=== PATIENT | female | born 1965 | race Caucasian/White ===

== ENCOUNTER → 2017-07-01 | Outpatient (CLI) | payer OTHER ==
[~2017-07-01] MED LIST: FLOMAX0.4 MG PO; HYDROCHLOROTHIA25 MG PO; NAPROXEN500 MG PO; PERCOCET 5/31 TABLET PO; PRINIVIL20 MG PO
== END | disposition home or self-care (01) ==
LOC: RAD 15:27
DX: M19.012 Primary osteoarthritis, left shoulder (principal); M47.892 Other spondylosis, cervical region; M25.512 Pain in left shoulder; V89.2XXA Person injured in unspecified motor-vehicle accident, traffic, initial encounter
CPT/HCPCS: 72040; 73030

== ENCOUNTER → 2017-09-13 | Outpatient (CLI) | payer OTHER | END | disposition home or self-care (01) | LOC: RAD 14:36 | DX: M25.552 Pain in left hip (principal); M25.551 Pain in right hip; M54.5 Low back pain | CPT/HCPCS: 73522 ==